=== PATIENT | male | born 1965 | race Caucasian/White ===

== ENCOUNTER 2017-04-30 15:38 | Emergency (ER) | payer MEDICAID ==
[~2017-04-30] VITALS: Ht 182.9 cm; Wt 104.3 kg
[~2017-04-30 15:38] MED LIST: ADVAIR; ADVAIR HFA 230M12 GM; ALBUTEROL INHAL17 GM IH; ALPRAZOLAM1 M1 PO; ANDROGEL1.25 GM TD; ATENOLOL 25 MG25 M1 PG; ATENOLOL 50MG T50 M1 PO; AVELOX400 MG PO; BACTRIM DS TAB1 EACH PO; CARAFATE 1 GM TA1 G1 PO; CLARITIN10 MG PO; CLARITIN5 MG PO; CLEOCIN HCL300 MG PO; COLACE100 MG PO; COZAAR 25 MG TA25 M2; COZAAR 25 MG TA25 MG PO; COZAAR 50 MG TA50 M2; CYMBALTA60 MG PO; FLEXERIL PO; HALCION0.25 MG PO; HYDROCODONE-AP1 EAC6 PO; HYDROXYZINE HCL10 M1 PO; HYDROXYZINE HCL25 M1 PO; LOPERAMIDE 2 MG2 M1 PO; MORPHINE; MS CONTIN 30 MG30 MG PO; MS CONTIN30 MG; NORCO 5-325 TA1 EACH PO; OXYCODONE HCL5 M1 PO; OXYCONTIN60 MG PO; PERCOCET 5-3251 EACH PO; POTASSIUM99 M1 PO; PREDNISONE 20 M20 M1 PO; PROVENTIL HFA6.7 G1 INH; RESTORIL30 MG; ROXICODONE5 M2 PO; VITAMIN D1000 UNI1 PO; XANAX1 MG PO; ZANTAC 150MG T150 MG
[2017-04-30] MEDS ORDERED: DURAGESIC25 MCG/HR TRANSDERM (15:49)
[2017-04-30] MEDS ORDERED: ATENOLOL 100MG100 MG PO (15:50)
[2017-04-30 16:35] LABS: CALCIUM 9.5 mg/dL (8.5-10.1); CREATININE 1.1 mg/dL (0.6-1.3)
[2017-04-30 16:40] LABS: ALBUMIN 4.7 g/dL (3.4-5.0); TOTAL BILIRUBIN 0.7 mg/dL (<0.1-1.0); TOTAL PROTEIN 8.4 g/dL (6.4-8.2)
[2017-04-30 17:47] LABS: AMP/METHAMP Negative (Negative); BARBITURATES Negative (Negative); BENZODIAZEPINES Negative (Negative); COCAINE Negative (Negative); METHADONE Negative (Negative); OPIATES Negative (Negative); PCP Negative (Negative); THC POSITIVE (Negative)
[2017-04-30] MEDS ORDERED: NORCO 5-325 TA1 EACH PO (17:59)
[2017-04-30] MEDS ORDERED: PHENERGAN 25 MG25 MG PO (18:07)
[2017-04-30 18:33] VITALS: BP 146/83
== END 2017-04-30 18:34 | disposition home or self-care (01) ==
LOC: M.ERS 15:38
PROVIDERS: Nurse Practitioner Family
DX: G89.29 Other chronic pain (principal); M54.9 Dorsalgia, unspecified; F11.23 Opioid dependence with withdrawal; I10 Essential (primary) hypertension; J45.909 Unspecified asthma, uncomplicated; F43.10 Post-traumatic stress disorder, unspecified; F32.9 Major depressive disorder, single episode, unspecified; Z90.49 Acquired absence of other specified parts of digestive tract; Z90.89 Acquired absence of other organs; Z88.5 Allergy status to narcotic agent; Z91.040 Latex allergy status; Z88.8 Allergy status to other drugs, medicaments and biological substances

== ENCOUNTER 2018-03-27 22:18 | Emergency (ER) | payer MEDICAID ==
[~2018-03-27] VITALS: Ht 182.9 cm; Wt 99.8 kg
[~2018-03-27 22:18] MED LIST changes: +ATENOLOL 100MG100 MG PO; +DURAGESIC25 MCG/HR TRANSDERM; +PHENERGAN 25 MG25 MG PO
[2018-03-27] MEDS ORDERED: NORCO 5-325 TA1 EACH PO (23:26)
[2018-03-27 23:43] VITALS: BP 179/105
== END 2018-03-27 23:44 | disposition home or self-care (01) ==
LOC: M.ERS 22:18
DX: G89.29 Other chronic pain (principal); M54.5 Low back pain; I10 Essential (primary) hypertension; J45.909 Unspecified asthma, uncomplicated; F32.9 Major depressive disorder, single episode, unspecified; K21.9 Gastro-esophageal reflux disease without esophagitis; Z90.49 Acquired absence of other specified parts of digestive tract; Z98.890 Other specified postprocedural states; Z86.14 Personal history of Methicillin resistant Staphylococcus aureus infection; Z88.5 Allergy status to narcotic agent; Z91.040 Latex allergy status; Z88.8 Allergy status to other drugs, medicaments and biological substances

== ENCOUNTER 2019-01-05 06:59 | Inpatient (IN) | payer MEDICAID ==
[~2019-01-05] VITALS: Ht 182.9 cm; Wt 117.2 kg
[~2019-01-05 06:59] MED LIST changes: -HYDROXYZINE HCL25 M1 PO; +HYDROXYZINE HCL25 M2 PO
[2019-01-05 07:13] VITALS: BP 144/76
[2019-01-05 07:50] LABS: HEMATOCRIT 36.2 % (42.0-52.0); HEMOGLOBIN 12.5 gm/dL (14.0-18.0); MCHC 34.6 g/dL (28.0-37.0); MCV 83.9 fL (80.0-100.0); NUCLEATED RBCS 0 /100WBC; PLATELET COUNT* 178 thou/uL (150-400); RBC 4.32 mil/uL (4.50-6.00); RDW-CV 14.1 % (10.5-14.5); WBC 8.5 thou/uL (4.0-11.0)
[2019-01-05 07:59] LABS: CALCIUM 8.8 mg/dL (8.5-10.1); CREATININE 1.5 mg/dL (0.6-1.3)
[2019-01-05 08:03] LABS: ALBUMIN 3.6 g/dL (3.4-5.0); TOTAL BILIRUBIN 0.3 mg/dL (<0.1-1.0); TOTAL PROTEIN 6.8 g/dL (6.4-8.2)
[2019-01-05 08:41] LABS: ABSOLUTE LYMPHOCYTES 2.2 thou/uL (0.8-5.3); ABSOLUTE MONOCYTES 0.6 thou/uL (0.0-1.2); ABSOLUTE NEUTROPHILS 5.7 thou/uL (1.6-8.1); PLATELET ESTIMATE ADEQUATE
--- NOTE | 2019-01-05 10:00 | NUR ---
MRI HERE TO [facility]IST PT. PT TO GO UPSTAIRS AFTER MRI
[2019-01-05 10:45] VITALS: BP 144/62
[2019-01-05 10:50] VITALS: BP 145/80
[2019-01-05] MEDS ORDERED: MORPHINE SULFAT15 M4 PO (11:33)
[2019-01-05] MEDS ORDERED: XANAX1 MG PO (11:34)
[2019-01-05] MEDS ORDERED: OXYCODONE HCL10 MG PO (11:34)
--- NOTE | 2019-01-05 12:05 | NUR ---
pt arrived on tele floor at 1045 accompanied by er nurse. pt is ao4 on ra. vss. see chart. sr 1st av block on court recording monitor. nih 2, double vision, slight drift of left lower extremity. passed bedside swallowing eval per nurse. normal saline infusing at 125 per hour. complains of pain in back area. fentanyl was given in er and did not touch pain. will monitor and administer further pain medicine as ordered. admission assessment performed.pt refused mri. call light at reach. no further complaint will continue to monitor.
--- NOTE | 2019-01-05 14:46 | NUR ---
oxy given for pain , ativan 4 mg given for anxiety 30 minutes prior to mri. mri questionaire filled out. 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 pt could not stay still for mri even after ativan administration . will let dr domínguez
[2019-01-05 16:23] VITALS: BP 161/75
--- NOTE | 2019-01-05 19:16 | NUR ---
PT IS NOT APPROPRIATE FORGETFUL, PTSD. WRIPPED CIERRA IV WHILE WALKING TO RESTROOM. WILL TRY TO INSERT NEW IV. PT ASKED TO LEAVE AMA X2 BUT WOULD NOT SIGN AMA PAPER. PT IS CURRENTLY IN ROOM IN BED.
[2019-01-05 20:00] VITALS: BP 150/81
[2019-01-05 23:50] VITALS: BP 163/80
[2019-01-06 04:30] VITALS: BP 156/87
[2019-01-06 05:31] LABS: ALBUMIN 3.8 g/dL (3.4-5.0); ALKALINE PHOSPHATASE 80 U/L (46-116); ANION GAP 13 mmol/L (7-16); BUN 14 mg/dL (7-18); CALCIUM 8.5 mg/dL (8.5-10.1); CHLORIDE 110 mmol/L (98-107); CHOLESTEROL 235 mg/dL (<200); CO2 23 mmol/L (21-32); CREATININE 1.2 mg/dL (0.6-1.3); GLUCOSE 114 mg/dL (70-99); HDL CHOLESTEROL 41 mg/dL (>40); LDL CHOLESTEROL 159 mg/dL (<100); POTASSIUM 3.5 mmol/L (3.5-5.1); SGOT 14 U/L (15-37); SGPT 20 U/L (30-65); SODIUM 146 mmol/L (136-145); TC:HDL 5.7 Ratio (Not establshd); TOTAL BILIRUBIN 0.2 mg/dL (<0.1-1.0); TOTAL PROTEIN 6.7 g/dL (6.4-8.2); TRIGLYCERIDE 175 mg/dL (<150); VLDL 35 mg/dL (<40)
[2019-01-06 05:33] LABS: SERUM ASSESSMENT CLEAR
--- NOTE | 2019-01-06 06:17 | NUR ---
PT ALERT AND ORIENTED. SEEMS FORGETFUL AT TIMES. PT GOT PAIN MED ROUND THE CLOCK THIS SHIFT. THREATENED TO LEAVE AMA LAST NIGHT, BUT DID NOT. PT ALSO GOT XANAX. AND IS WANTING IT ROUND THE CLOCK. PT PULLED OUT LT ANKLE IV BY ERROR. NO IV ACCESS AT THIS TIME. PT REFUSED TO GIVE URINE SAMPLE ALL NIGHT. I SPOKE WITH PT AGAIN THIS AM AND HE IS WILLING TO GIVE A SAMPLE. HE SAYS HE'LL CALL ONCE HE PEES. GIRLFRIEND AT BEDSIDE THIS SHIFT. PT NONCOMPLIANT WITH ECG. TOOK LEADS OFF. PT NONCOMPLIANT WITH FALL RISK. AMBULATES AD [place]. CALL LIGHT WITHIN REACH. HOURLY ROUNDINGS MADE. WILL CONTINUE TO MONITOR.
--- NOTE | 2019-01-06 07:20 | NUR ---
CHANGE OF SHIFT, BEDSIDE REPORT GIVEN PATIENT SEEN AT BEDSIDE, IN BED WATCHING TV ASSUMED PATIENT CARE
--- NOTE | 2019-01-06 10:17 | EKG ---
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
[2019-01-06 13:38] VITALS: BP 156/87
[2019-01-06 13:43] VITALS: BP 123/68
--- NOTE | 2019-01-06 13:57 | NUR ---
PATIENT DISCHARGED TO HOME ALL DISCHARGE INSTRUCTIONS GIVEN, ACKNOWLEDGED, SIGNED COPIES GIVEN HEART MONITOR REMOVED, NO IV ACCESS PATIENT ESCORTED OUT AMBULATORY
[2019-01-06] MEDS ORDERED: LIPITOR40 MG PO (21:27)
[2019-01-06] MEDS ORDERED: ASPIR 8181 M1 PO (21:27)
[2019-01-07 05:39] LABS: GLYCOHEMOGLOBIN (HGB A1C) 5.2 % (4.8-5.6)
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
== END 2019-01-06 14:00 | disposition home or self-care (01) | DRG 69 ==
LOC: M.ERS 06:59 → M.2W 09:19 → M.TBA-ER 09:19 → M.2W 10:44
PROVIDERS: Emergency Medicine Emergency Medical Services; ADMIT Family Medicine
DX: G45.9 Transient cerebral ischemic attack, unspecified (principal); N17.9 Acute kidney failure, unspecified; I10 Essential (primary) hypertension; J45.909 Unspecified asthma, uncomplicated; F32.9 Major depressive disorder, single episode, unspecified; K21.9 Gastro-esophageal reflux disease without esophagitis; H53.2 Diplopia; M54.5 Low back pain; F41.9 Anxiety disorder, unspecified; G89.4 Chronic pain syndrome; M19.90 Unspecified osteoarthritis, unspecified site; G58.8 Other specified mononeuropathies; Z86.14 Personal history of Methicillin resistant Staphylococcus aureus infection; Z79.891 Long term (current) use of opiate analgesic; Z90.49 Acquired absence of other specified parts of digestive tract; Z88.8 Allergy status to other drugs, medicaments and biological substances; Z88.6 Allergy status to analgesic agent; Z91.040 Latex allergy status; Z79.899 Other long term (current) drug therapy

== ENCOUNTER 2019-07-28 22:50 | Emergency (ER) | payer MEDICAID ==
[~2019-07-28] VITALS: Ht 182.9 cm; Wt 104.3 kg
[~2019-07-28 22:50] MED LIST changes: +ASPIR 8181 M1 PO; +LIPITOR40 MG PO; +MORPHINE SULFAT15 M4 PO; +OXYCODONE HCL10 MG PO
[2019-07-28] MEDS ORDERED: ATENOLOL 100MG100 MG PO (23:01)
[2019-07-28] MEDS ORDERED: NORFLEX100 MG PO (23:24)
[2019-07-28] MEDS ORDERED: TORADOL 10 MG T10 MG PO (23:24)
[2019-07-28] MEDS ORDERED: MEDROLDOSEPACK PO (23:24)
[2019-07-28 23:54] VITALS: BP 132/70
== END 2019-07-28 23:55 | disposition home or self-care (01) ==
LOC: M.ERS 22:50
DX: M54.5 Low back pain (principal); G89.29 Other chronic pain; I10 Essential (primary) hypertension; J45.909 Unspecified asthma, uncomplicated; K21.9 Gastro-esophageal reflux disease without esophagitis; F32.9 Major depressive disorder, single episode, unspecified; Z90.49 Acquired absence of other specified parts of digestive tract; Z86.14 Personal history of Methicillin resistant Staphylococcus aureus infection; Z91.040 Latex allergy status; Z88.6 Allergy status to analgesic agent; Z88.8 Allergy status to other drugs, medicaments and biological substances